=== PATIENT | male | born 1935 | race Caucasian/White ===

== ENCOUNTER 2017-07-23 22:40 | Inpatient (IN) | payer OTHER, BC ==
[~2017-07-23] VITALS: Ht 162.6 cm; Wt 62.8 kg
[~2017-07-23 22:40] MED LIST: ALDACTONE25 MG PO; BENICAR20 MG PO; CENTRUM SILVER1 EAC3 PO; COLACE100 MG PO; COREG3.125 M1 PO; COUMADIN1 MG PO; COUMADIN2 MG PO; ENALAPRIL MALEAT5 MG PO; LASIX20 MG PO; LASIX40 MG PO; LISINOPRIL5 MG PO; LIVALO1 MG PO; LIVALO2 MG PO; METOPROLOL SUCC25 MG PO; PLAVIX75 MG PO; PRAVACHOL40 MG PO; WARFARIN SODIUM1 MG PO
[2017-07-24] LABS: PTT 43.9 SEC (25-37)
[2017-07-24 00:01] LABS: INTER. NORMALIZED RATIO 6.1
[2017-07-24 00:03] LABS: CHLORIDE 96 mEq/L (99-109); SODIUM 132 mEq/L (136-147)
[2017-07-24 00:06] LABS: TOTAL PROTEIN 6.8 g/dL (6.4-8.3)
[2017-07-24 00:07] LABS: TOTAL BILIRUBIN 1.3 mg/dL (0.0-1.0)
[2017-07-24 00:09] LABS: ALKALINE PHOSPHATASE 73 IU/L (3-129); CREATININE 1.2 mg/dL (0.6-1.3); GFR ESTIMATE (CALCULATED) > 59 mL/min/ (58.99-99999)
[2017-07-24 00:10] LABS: UREA NITROGEN (BUN) 52 mg/dL (9-23)
[2017-07-24 00:11] LABS: AST (GOT) 25 IU/L (2-34)
[2017-07-24 00:12] LABS: ALT (GPT) 49 IU/L (3-49); HEMATOCRIT 49.7 % (38.0-50.0); HEMOGLOBIN 17.2 G/DL (12.5-16.6); LIPASE 12 U/L (1.0-51.0); MCH 28.7 PG (29.0-34.0); MCHC 34.6 G/DL (30.0-36.0); MCV 82.8 FL (86-99); RBC DIS.WIDTH-SD 36.3 % (39-53); WHITE BLOOD COUNT 21.6 K/uL (4.1-10.2)
[2017-07-24 00:13] LABS: CREATINE KINASE 118 IU/L (1-294); GLUCOSE 542 mg/dL (70-99); TOTAL CK 118 IU/L (1-294); TROP-I INTERPRETATION NEGATIVE; TROPONIN-I 0.04 ng/mL (0.0-0.30)
[2017-07-24 00:20] LABS: CKMB RELATIVE INDEX 4.2 (0.0-3.9)
[2017-07-24 00:44] LABS: PLAT.SUFFICIENCY DECREASED; PLATELET COUNT 141 K/uL (156-360)
[2017-07-24 00:51] LABS: CARBON DIOXIDE (BICARBONATE) 26.8 MEQ/L (20-31)
[2017-07-24 01:03] LABS: APPEARANCE CLEAR ((CLEAR)); BILIRUBIN NEGATIVE; BLOOD NEGATIVE; COLOR YELLOW ((YELLOW)); GLUCOSE (STRIP) >=500; KETONES 5; LEUKOCYTES NEGATIVE; NITRITE NEGATIVE; PROTEIN (STRIP) NEGATIVE; SPECIFIC GRAVITY 1.032 (1.000-1.030); UROBILINOGEN 0.2 MG/DL (0.2-1.0)
[2017-07-24 07:57] LABS: HEMATOCRIT 43.8 % (38.0-50.0); MCH 28.5 PG (29.0-34.0); MCHC 34.7 G/DL (30.0-36.0); PLATELET COUNT 112 K/uL (156-360); RBC DIS.WIDTH-SD 36.3 % (39-53); RED BLOOD COUNT 5.34 M/uL (4.00-5.50); WHITE BLOOD COUNT 20.8 K/uL (4.1-10.2)
[2017-07-24 07:59] LABS: HEMOGLOBIN 15.2 G/DL (12.5-16.6)
[2017-07-24 08:06] LABS: CHLORIDE 105 MEQ/L (99-109); POTASSIUM 4.2 MEQ/L (3.7-5.4); SODIUM 135 MEQ/L (136-147); UREA NITROGEN (BUN) 40 mg/dL (9-23)
[2017-07-24 08:08] LABS: CREATININE 0.7 MG/DL (0.6-1.3); GFR ESTIMATE (CALCULATED) > 59 mL/min/ (58.99-99999); GLUCOSE 237 mg/dL (70-99)
[2017-07-24 11:24] LABS: HEMOGLOBIN A1c (GLYCOHEMOGLOB) 9.4 % (Below 5.7)
[2017-07-24] MEDS ORDERED: SPIRONOLACTONE25 MG PO (11:43)
[2017-07-24] MEDS ORDERED: LOSARTAN POTASS50 MG PO (11:44)
[2017-07-24] MEDS ORDERED: CARVEDILOL3.125 MG PO (11:45)
[2017-07-24 18:58] VITALS: BP 129/67
[2017-07-24 23:27] VITALS: BP 126/71
[2017-07-25 05:53] LABS: HEMATOCRIT 45.4 % (38.0-50.0); HEMOGLOBIN 15.3 G/DL (12.5-16.6); MCH 27.4 PG (29.0-34.0); MCHC 33.7 G/DL (30.0-36.0); MCV 81.4 FL (86-99); PLATELET COUNT 108 K/uL (156-360); RBC DIS.WIDTH-SD 35.3 % (39-53); RED BLOOD COUNT 5.58 M/uL (4.00-5.50); WHITE BLOOD COUNT 17.9 K/uL (4.1-10.2)
[2017-07-25 06:24] LABS: CHLORIDE 101 MEQ/L (99-109); CREATININE 0.7 MG/DL (0.6-1.3); GFR ESTIMATE (CALCULATED) > 59 mL/min/ (58.99-99999); GLUCOSE 179 mg/dL (70-99); POTASSIUM 4.4 MEQ/L (3.7-5.4); SODIUM 130 MEQ/L (136-147); UREA NITROGEN (BUN) 31 mg/dL (9-23)
[2017-07-25 07:01] LABS: INTER. NORMALIZED RATIO 6.4
[2017-07-25 07:10] VITALS: BP 113/77
[2017-07-25 15:35] VITALS: BP 116/67
[2017-07-25 22:09] VITALS: BP 116/72
[2017-07-26 00:39] VITALS: BP 122/80
[2017-07-26 06:25] LABS: BASOPHIL (%) 0.2 % (0-1); EOSINOPHIL (%) 0.7 % (0-5); EOSINOPHIL COUNT 0.1 K/uL (0-0.3); HEMATOCRIT 46.8 % (38.0-50.0); HEMOGLOBIN 15.7 G/DL (12.5-16.6); IMMATURE GRANULOCYTE (%) 2.2 % (0.0-0.7); LYMPHOCYTE (%) 6.7 % (15-42); LYMPHOCYTE COUNT 1.2 K/uL (1.0-2.8); MCH 27.4 PG (29.0-34.0); MCHC 33.5 G/DL (30.0-36.0); MCV 81.7 FL (86-99); MONOCYTE (%) 6.6 % (3-12); MONOCYTE COUNT 1.2 K/uL (0-0.8); NEUTROPHIL (%) 83.6 % (45-76); NEUTROPHIL COUNT 14.8 K/uL (1.8-6.4); PLATELET COUNT 109 K/uL (156-360); RED BLOOD COUNT 5.73 M/uL (4.00-5.50); WHITE BLOOD COUNT 17.6 K/uL (4.1-10.2)
[2017-07-26 06:44] LABS: CHLORIDE 99 MEQ/L (99-109); CREATININE 0.7 MG/DL (0.6-1.3); GFR ESTIMATE (CALCULATED) > 59 mL/min/ (58.99-99999); GLUCOSE 165 mg/dL (70-99); POTASSIUM 4.4 MEQ/L (3.7-5.4); SODIUM 133 MEQ/L (136-147); UREA NITROGEN (BUN) 24 mg/dL (9-23)
[2017-07-26 07:30] VITALS: BP 126/67
[2017-07-26 11:12] VITALS: BP 117/72
[2017-07-26 15:36] VITALS: BP 112/84
[2017-07-26 21:54] VITALS: BP 112/82
[2017-07-26 23:30] VITALS: BP 142/72
[2017-07-27 06:04] LABS: BASOPHIL (%) 0.2 % (0-1); EOSINOPHIL (%) 0.6 % (0-5); EOSINOPHIL COUNT 0.1 K/uL (0-0.3); HEMATOCRIT 46.3 % (38.0-50.0); HEMOGLOBIN 15.7 G/DL (12.5-16.6); IMMATURE GRANULOCYTE (%) 1.6 % (0.0-0.7); LYMPHOCYTE (%) 6.7 % (15-42); LYMPHOCYTE COUNT 1.3 K/uL (1.0-2.8); MCH 27.5 PG (29.0-34.0); MCHC 33.9 G/DL (30.0-36.0); MCV 81.1 FL (86-99); MONOCYTE (%) 6.2 % (3-12); MONOCYTE COUNT 1.2 K/uL (0-0.8); NEUTROPHIL (%) 84.7 % (45-76); NEUTROPHIL COUNT 16.1 K/uL (1.8-6.4); PLATELET COUNT 121 K/uL (156-360); RBC DIS.WIDTH-SD 35.2 % (39-53); RED BLOOD COUNT 5.71 M/uL (4.00-5.50)
[2017-07-27 06:33] LABS: CHLORIDE 99 MEQ/L (99-109); CREATININE 0.7 MG/DL (0.6-1.3); GFR ESTIMATE (CALCULATED) > 59 mL/min/ (58.99-99999); GLUCOSE 229 mg/dL (70-99); POTASSIUM 4.6 MEQ/L (3.7-5.4); SODIUM 132 MEQ/L (136-147); UREA NITROGEN (BUN) 23 mg/dL (9-23)
[2017-07-27 06:59] LABS: INTER. NORMALIZED RATIO 2.7
[2017-07-27 07:20] VITALS: BP 135/70
[2017-07-27 11:27] VITALS: BP 136/69
[2017-07-27] MEDS ORDERED: NOVOLOG 10100 UNITS/ SC (14:30)
[2017-07-27 15:00] VITALS: BP 128/75
== END 2017-07-27 18:36 | DRG 552 ==
LOC: EME → EDBD 22:40 → EME 22:40 → EDOF 07-24 01:50 → 5EAST 07-24 01:50 → ENRESERV 07-24 02:12 → 5EAST 07-24 18:15
PROVIDERS: Emergency Medicine; Family Medicine
DX: M48.061 Spinal stenosis, lumbar region without neurogenic claudication (principal); M47.816 Spondylosis without myelopathy or radiculopathy, lumbar region; M47.812 Spondylosis without myelopathy or radiculopathy, cervical region; M50.30 Other cervical disc degeneration, unspecified cervical region; M51.36 Other intervertebral disc degeneration, lumbar region; M41.9 Scoliosis, unspecified; M62.81 Muscle weakness (generalized); N17.9 Acute kidney failure, unspecified; E86.0 Dehydration; E87.1 Hypo-osmolality and hyponatremia; D72.829 Elevated white blood cell count, unspecified; T38.0X5A Adverse effect of glucocorticoids and synthetic analogues, initial encounter; E11.65 Type 2 diabetes mellitus with hyperglycemia; M43.10 Spondylolisthesis, site unspecified; R35.0 Frequency of micturition; R32 Unspecified urinary incontinence; R29.6 Repeated falls; I11.0 Hypertensive heart disease with heart failure; I50.9 Heart failure, unspecified; I25.10 Atherosclerotic heart disease of native coronary artery without angina pectoris; M06.9 Rheumatoid arthritis, unspecified; M19.90 Unspecified osteoarthritis, unspecified site; Z79.01 Long term (current) use of anticoagulants; Z79.4 Long term (current) use of insulin; Z91.81 History of falling; Z95.1 Presence of aortocoronary bypass graft; M25.561 Pain in right knee; M25.562 Pain in left knee; R26.9 Unspecified abnormalities of gait and mobility; Z95.810 Presence of automatic (implantable) cardiac defibrillator; Z98.1 Arthrodesis status
CPT/HCPCS: 70450; 71045; 72125; 72131; 80048; 80053; 81003; 82550; 82553; 82803; 82948; 83036; 83605; 83690; 83880; 83930; 84484; 85025; 85027; 85610; 85730; 87040; 93005; 99281; 99284; J0696; J1815; J7030